=== PATIENT | female | born 1960 ===

== ENCOUNTER 2019-08-25 08:33 | Day surgery (SDC) | payer OTHER ==
[~2019-08-25 08:33] MED LIST: Buffered Lidocaine 1% SYRIN* 1 ML/SYRINGE INTRADERM ONE; Lactated Ringers 1000 ML Bag* 1,000 ML IV SCH
[2019-08-25] MEDS ORDERED: Buffered Lidocaine 1% SYRIN* 1 ML/SYRINGE INTRADERM ONE (10:15)
[2019-08-25] MEDS ORDERED: Phenylephrine 40 MCG/ML SYRINGE ONE (10:52)
[2019-08-25] MEDS ORDERED: Ondansetron INJ* 2 MG/ML VIAL ONE (11:02)
[2019-08-25] MEDS ORDERED: Propofol* 10 MG/ML 20 ML BTL ONE (11:02)
[2019-08-25] MEDS ORDERED: Dexamethasone IV* 4 MG/ML 1 ML (4 MG) ONE (11:02)
[2019-08-25 11:49] VITALS: BP 115/62
[2019-08-25] MEDS ORDERED: Naloxone* 0.4 MG/ML 1 ML VIAL IV PRN (12:24)
--- NOTE | 2019-08-26 01:36 | PRO ---
CC: Dr. Maribel Magallon * COLONOSCOPY REPORT: DATE OF PROCEDURE: 08/25/19 - [facility] PHYSICIAN: Dr. Maribel Magallon. INDICATION FOR PROCEDURE: Diverticulitis. PROCEDURE PERFORMED: Complete colonoscopy to the cecum with biopsy polypectomy. MEDICATIONS GIVEN: Please see anesthesia record. DESCRIPTION OF PROCEDURE: After the colonoscopy procedure, including the risks , benefits, and alternatives, with the risks not limited to perforation, surgery , missed lesions, and/or were explained to the patient, written informed consent was obtained, IV medication was given, and a rectal exam was performed. The rectal exam was unremarkable. The adult Olympus colonoscope was then inserted into the patient's rectum and advanced very carefully through the entirety of the colon, into the cecal base. The cecal base was carefully inspected and normal in appearance. The terminal ileal valve was identified and normal in appearance. The quality of preparation was good. A photograph was taken of the cecal cap. Over the next 8 minutes, the scope was carefully withdrawn inspecting the mucosa. A small polyp in the sigmoid colon was removed with the biopsy polypectomy in entirety. There was moderate diverticulosis coli, by far the greatest concentration confined mostly within the sigmoid with maybe 1 to 2 diverticulum in the descending or other areas. The scope was then returned to the rectum. Direct views were normal. On retroflexion, the views were normal as well. The scope was then removed from the patient. She tolerated the procedure well. She returned to the recovery room in stable condition. IMPRESSION: 1. Complete colonoscopy to the cecum. 2. Good prep. 3. Biopsy polypectomy x1 sigmoid colon polyp. 4. Moderate diverticulosis coli of the sigmoid. RECOMMENDATIONS: Repeat colonoscopy in 5 to 10 years pending pathology. She has been doing well by taking daily fiber and avoiding NSAIDs and has not had any further diverticular attacks. If this continues, we would not recommend any surgical intervention; however, she has had multiple prior attacks and if she does end up in another relapsing course may benefit from sigmoidectomy. [id number]/[facility] #: [id number] [facility] HOSPITALSelena
== END 2019-08-25 12:12 | disposition home or self-care (01) ==
LOC: OR 08:33
PROVIDERS: ATTEND Internal Medicine Gastroenterology
DX: K57.32 Diverticulitis of large intestine without perforation or abscess without bleeding (principal); K63.5 Polyp of colon; R10.32 Left lower quadrant pain; R19.7 Diarrhea, unspecified; F41.8 Other specified anxiety disorders; I10 Essential (primary) hypertension; J45.909 Unspecified asthma, uncomplicated; K44.9 Diaphragmatic hernia without obstruction or gangrene; M19.90 Unspecified osteoarthritis, unspecified site; Z88.0 Allergy status to penicillin; Z88.8 Allergy status to other drugs, medicaments and biological substances; F17.210 Nicotine dependence, cigarettes, uncomplicated
CPT/HCPCS: 88305; J1100; J2405; J2704